=== PATIENT | male | born 1960 | race Caucasian/White ===

== ENCOUNTER → 2023-06-30 | Outpatient (CLI) | payer OTHER ==
[2023-06-30 18:05] LABS: Basophils % (A) 0.8 %; HCT 45.4 % (39.6-50.0); HGB 14.4 g/dL (13.0-17.0); Lymphocytes % (A) 11.3 %; MCH 27.4 pg (27.0-32.0); MCHC 31.7 g/dL (32.0-37.0); MCV 86.5 FL (80.0-97.0); Mean Platelet Volume 10.9 FL (9.5-12.2); Monocytes # (A) 1.12 X 10*3/uL (0.20-1.00); Monocytes % (A) 9.1 %; NRBC Per 100 WBC 0 X 10*3/uL (0.00-0.01); Neutrophils # (A) 9.16 X 10*3/uL (1.80-7.70); Neutrophils % (A) 74.2 %; Platelet Count 265 X 10*3/uL (140-440); RBC 5.25 X 10*6/uL (4.40-5.60); RDW 17.9 % (11.5-14.5); WBC 12.36 X 10*3/uL (4.50-10.00)
[2023-06-30 18:34] LABS: % Iron Saturation 12.36 (15.00-50.00); Ferritin 34.5 ng/mL (22.0-322.0)
== END | disposition home or self-care (01) ==
LOC: LABWHC1 11:19
PROVIDERS: ATTEND Internal Medicine
DX: D64.9 Anemia, unspecified (principal)
CPT/HCPCS: 36415; 82728; 83540; 83550; 85025